=== PATIENT | male | born 2000 | race Caucasian/White ===

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

== ENCOUNTER 2021-05-23 20:47 | Emergency (ER) | payer OTHER ==
[~2021-05-23] VITALS: Ht 170.2 cm; Wt 49.5 kg
[2021-05-23] MEDS ORDERED: FLUORESCEIN SODIUM 1 MG STRIP OU ONE (22:15)
[2021-05-23] MEDS ORDERED: PROPARACAINE HCL 0.5% 15 ML OPHTHALMIC SOLUTION OU ONE (22:15)
[2021-05-23 23:15] VITALS: BP 119/70
== END 2021-05-23 23:46 | disposition home or self-care (01) ==
LOC: EMS 20:50
DX: H10.32 Unspecified acute conjunctivitis, left eye (principal); H57.12 Ocular pain, left eye
CPT/HCPCS: 99283